=== PATIENT | female | born 1965 | race Asian ===

== ENCOUNTER 2022-02-10 15:28 | Emergency (ER) | payer OTHER ==
[~2022-02-10] VITALS: Ht 165.1 cm; Wt 90.9 kg
[2022-02-10] MEDS ORDERED: LOSA-382 PO (15:32)
[2022-02-10] MEDS ORDERED: KETOROLAC TROMETHAMINE 60 MG/2 ML VIAL IM ONE (17:30)
[2022-02-10] MEDS ORDERED: ACETAMINOPHEN/CODEINE 300-30 MG TABLET PO ONE (17:30)
[2022-02-10 18:54] VITALS: BP 139/65
[2022-02-10] MEDS ORDERED: ACET-2080 PO (20:16)
[2022-02-10] MEDS ORDERED: IBUP-1554 PO (20:16)
== END 2022-02-10 20:33 | disposition home or self-care (01) ==
LOC: EMS 15:35
DX: S83.92XA Sprain of unspecified site of left knee, initial encounter (principal); I10 Essential (primary) hypertension; X58.XXXA Exposure to other specified factors, initial encounter; Y93.89 Activity, other specified; Y92.89 Other specified places as the place of occurrence of the external cause; Y99.8 Other external cause status
CPT/HCPCS: 99283; 73562; 96372; J1885